=== PATIENT | male | born 1955 ===

== ENCOUNTER 2016-09-05 08:48 | Day surgery (SDC) | payer OTHER ==
[2016-04-28 12:52] VITALS: BMI 27.1
[2016-09-05] MEDS ORDERED: Propofol 10 mg/ml Inj (20 ML) ONE ×3 (09:30→10:48)
[2016-09-05] MEDS ORDERED: Benzocaine/Butamben/Tetracai 14-2-2% TOP Spray TOP ONE (10:10)
[2016-09-05] MEDS ORDERED: ePHEDrine 50 mg/ml Inj ONE ×2 (10:39→10:49)
[2016-09-05] MEDS ORDERED: Sodium Chloride 0.9% 1,000 ML IV SCH (11:15)
[2016-09-05 12:41] VITALS: BP 133/81; PULSE 84; RESP 16; TEMP 98.4; O2SAT 96
== END 2016-09-05 13:04 | disposition home or self-care (01) ==
LOC: ENDO 08:48
PROVIDERS: ATTEND Internal Medicine
DX: K22.711 Barrett's esophagus with high grade dysplasia (principal); K29.70 Gastritis, unspecified, without bleeding; K44.9 Diaphragmatic hernia without obstruction or gangrene
CPT/HCPCS: 43270; 82948; J2704; J7040 ×2